=== PATIENT | male | born 1995 | race Caucasian/White ===

== ENCOUNTER 2018-04-16 13:35 | Outpatient (CLI) | payer MEDICAID ==
[~2018-04-16] VITALS: Ht 182.9 cm; Wt 61.4 kg
[2018-04-16 13:34] VITALS: BP 135/92
[~2018-04-16 13:35] MED LIST: HYDR-3965 PO
[2018-04-18] MEDS ORDERED: ALBU90AE PO (13:02)
== END 2018-04-16 14:38 | disposition home or self-care (01) ==
LOC: ORTHO 13:35
PROVIDERS: ATTEND Nurse Practitioner Family
DX: S52.614A Nondisplaced fracture of right ulna styloid process, initial encounter for closed fracture (principal); S52.501A Unspecified fracture of the lower end of right radius, initial encounter for closed fracture; F17.210 Nicotine dependence, cigarettes, uncomplicated; F12.90 Cannabis use, unspecified, uncomplicated; F31.9 Bipolar disorder, unspecified; F41.9 Anxiety disorder, unspecified; Z60.2 Problems related to living alone; X58.XXXA Exposure to other specified factors, initial encounter; Y93.89 Activity, other specified; Y92.89 Other specified places as the place of occurrence of the external cause; Y99.8 Other external cause status
CPT/HCPCS: 99215

== ENCOUNTER 2018-04-21 07:44 | Day surgery (SDC) | payer MEDICAID ==
[2018-04-21] VITALS (9 sets, daily range): BP systolic 108–144; BP diastolic 63–81
[~2018-04-21] VITALS: Ht 185.4 cm; Wt 61.7 kg
[~2018-04-21 07:44] MED LIST changes: +ALBU90AE PO; -HYDR-3965 PO; +VANCOMYCIN INJ 1000 MG in NORMAL SALINE 250ml IV.SOLN IV ONE; +albuterol 2.5 MG/3 ML nebule NEB ONE; +cefazolin/dext.iso 2gm/100 ML IV ONE; +famotidine 20mg tablet PO ONE; +ringers solution, lacted 1,000 ML IV SCH
[2018-04-21] MEDS ORDERED: ceFAZolin 1000mg inj ONE (08:15)
[2018-04-21] MEDS ORDERED: bacitracin 15gm ointment TP ONE (08:15)
[2018-04-21] MEDS ORDERED: BUPIVAcaine/PF 2.5mg/ml (0.25%) 10ml vial ONE (08:15)
[2018-04-21] MEDS ORDERED: LIDOcaine 1% (10mg/ml) 2ml vial ONE (08:22)
[2018-04-21] MEDS ORDERED: ringers solution, lacted 1,000 ML IV SCH (08:22)
[2018-04-21] MEDS ORDERED: meperidine/PF 25mg/ml syringe IV PRN ×3 (08:25)
[2018-04-21] MEDS ORDERED: proCHLORperazine 10 MG/2 ml inj IV PRN (08:25)
[2018-04-21] MEDS ORDERED: ondansetron/PF 4mg/2ml inj IV PRN (08:25)
[2018-04-21] MEDS ORDERED: morphine 4 MG/ML inj SYRINge IV PRN ×2 (08:25)
[2018-04-21 08:32] LABS: BASOPHILS % (AUTO) 0.5 % (0-1); EOSINOPHILS # (AUTO) 0.2 X10'3 (0-0.9); EOSINOPHILS % (AUTO) 2.4 % (0-6); LYMPHOCYTES # (AUTO) 2.3 X10'3 (1.1-4.8); LYMPHOCYTES % (AUTO) 28.8 % (21-51); MEAN CORPUSCULAR HEMOGLOBIN 30.4 PG (27.0-31.0); MEAN CORPUSCULAR HGB CONC 34.1 % (33.0-36.5); MEAN CORPUSCULAR VOLUME 89.1 FL (78-98); MEAN PLATELET VOLUME 9.2 FL (7.4-10.4); MONOCYTES # (AUTO) 0.4 X10'3 (0-0.9); MONOCYTES % (AUTO) 4.9 % (2-12); NEUTROPHILS % (AUTO) 63.4 % (42-75); PRE OP HEMATOCRIT 41.5 % (42.0-52.0); PRE OP HEMOGLOBIN 14.1 g/dL (14.0-17.9); PRE OP PLATELET COUNT 240 X10'3 (140-440); RED BLOOD COUNT 4.66 X10'6 (4.70-6.10); RED CELL DISTRIBUTION WIDTH 13.8 % (11.5-14.5)
[2018-04-21 08:44] LABS: ALBUMIN 4.2 G/DL (3.4-5.0); ALBUMIN/GLOBULIN RATIO 1.3 (1.1-1.5); ALKALINE PHOSPHATASE 79 IU/L (46-116); BLOOD UREA NITROGEN 12 MG/DL (7-18); BUN/CREATININE RATIO 15.6 (5.4-32.0); CHLORIDE 103 MMOL/L (99-107); CREATININE 0.77 MG/DL (0.60-1.10); PRE OP ALT 20 U/L (30-65); PRE OP ANION GAP 10 (8-16); PRE OP AST 14 U/L (10-37); PRE OP BILIRUB, TOTAL 0.5 MG/DL (0.0-1.0); PRE OP GLUCOSE 99 MG/DL (70-104); PRE OP POTASSIUM 3.8 MMOL/L (3.4-5.1); PRE OP SODIUM 140 MMOL/L (135-145); TOTAL CARBON DIOXIDE 27.1 MMOL/L (24-32); TOTAL PROTEIN 7.5 G/DL (6.4-8.2); eGFR > 90 ML/MIN
[2018-04-21] MEDS ORDERED: dexamethasone sod phosphate 10mg/ml inj ONE (10:05)
[2018-04-21] MEDS ORDERED: sevoflurane 250ml liquid IH ONE (10:05)
[2018-04-21] MEDS ORDERED: fentaNYL/PF 50MCG/1 ML 2ML syringe ONE (10:13)
[2018-04-21] MEDS ORDERED: MIDAZolam 5mg/5ml vial ONE (10:14)
[2018-04-21] MEDS ORDERED: propofol inj 20 ML IV ONE (10:27)
[2018-04-21] MEDS ORDERED: LIDOcaine 1%/PF 5ML 10 MG/ML VIAL ONE (10:27)
== END 2018-04-21 13:00 | disposition home or self-care (01) ==
LOC: PAS 07:44
PROVIDERS: ATTEND Orthopaedic Surgery
DX: S52.571A Other intraarticular fracture of lower end of right radius, initial encounter for closed fracture (principal); G89.18 Other acute postprocedural pain; F17.210 Nicotine dependence, cigarettes, uncomplicated; F12.90 Cannabis use, unspecified, uncomplicated; Z98.890 Other specified postprocedural states; Z79.899 Other long term (current) drug therapy; X58.XXXA Exposure to other specified factors, initial encounter; Y93.89 Activity, other specified; Y92.89 Other specified places as the place of occurrence of the external cause; Y99.8 Other external cause status
CPT/HCPCS: 25609; 36415; 64450; 80053; 85025; A6449; C1713; J0690; J1100; J2001; J2250; J2704; J3010; J3370; J3490; A7000; J7120

== ENCOUNTER 2018-04-29 13:37 | Outpatient (CLI) | payer MEDICAID ==
[~2018-04-29 13:37] MED LIST changes: -VANCOMYCIN INJ 1000 MG in NORMAL SALINE 250ml IV.SOLN IV ONE; -albuterol 2.5 MG/3 ML nebule NEB ONE; -cefazolin/dext.iso 2gm/100 ML IV ONE; -famotidine 20mg tablet PO ONE; -ringers solution, lacted 1,000 ML IV SCH
[2018-04-29 13:39] VITALS: BP 134/74
== END 2018-04-29 15:38 | disposition home or self-care (01) ==
LOC: ORTHO 13:37
PROVIDERS: ATTEND Nurse Practitioner Family
DX: S52.501D Unspecified fracture of the lower end of right radius, subsequent encounter for closed fracture with routine healing (principal); S52.614D Nondisplaced fracture of right ulna styloid process, subsequent encounter for closed fracture with routine healing; F12.90 Cannabis use, unspecified, uncomplicated; F17.210 Nicotine dependence, cigarettes, uncomplicated; F41.9 Anxiety disorder, unspecified; Z60.2 Problems related to living alone; W19.XXXD Unspecified fall, subsequent encounter
CPT/HCPCS: 73110; 99213; A4590

== ENCOUNTER 2018-05-15 10:36 | Outpatient (CLI) | payer MEDICAID ==
[2018-05-15 10:26] VITALS: BP 131/86
== END 2018-05-15 11:02 | disposition home or self-care (01) ==
LOC: ORTHO 10:36
PROVIDERS: ATTEND Nurse Practitioner Family
DX: S52.571D Other intraarticular fracture of lower end of right radius, subsequent encounter for closed fracture with routine healing (principal); S52.611G Displaced fracture of right ulna styloid process, subsequent encounter for closed fracture with delayed healing; F17.210 Nicotine dependence, cigarettes, uncomplicated; F12.90 Cannabis use, unspecified, uncomplicated; F41.9 Anxiety disorder, unspecified; F41.0 Panic disorder [episodic paroxysmal anxiety]; Z60.2 Problems related to living alone; V00.138D Other skateboard accident, subsequent encounter
CPT/HCPCS: 73110; 99213; A4590

== ENCOUNTER 2018-06-03 11:30 | Outpatient (CLI) | payer MEDICAID ==
[2018-06-03 11:23] VITALS: BP 133/81
== END 2018-06-03 12:03 | disposition home or self-care (01) ==
LOC: ORTHO 11:30
PROVIDERS: ATTEND Nurse Practitioner Family
DX: S52.571G Other intraarticular fracture of lower end of right radius, subsequent encounter for closed fracture with delayed healing (principal); S52.611G Displaced fracture of right ulna styloid process, subsequent encounter for closed fracture with delayed healing; F12.90 Cannabis use, unspecified, uncomplicated; F17.210 Nicotine dependence, cigarettes, uncomplicated; F41.0 Panic disorder [episodic paroxysmal anxiety]; Z60.2 Problems related to living alone; V00.138D Other skateboard accident, subsequent encounter
CPT/HCPCS: 73100; 99213; A4590

== ENCOUNTER 2018-06-25 11:51 | Outpatient (CLI) | payer MEDICAID | END 2018-06-25 12:13 | disposition home or self-care (01) | LOC: ORTHO 11:51 | PROVIDERS: ATTEND Nurse Practitioner Family | DX: S52.571D Other intraarticular fracture of lower end of right radius, subsequent encounter for closed fracture with routine healing (principal); S52.611G Displaced fracture of right ulna styloid process, subsequent encounter for closed fracture with delayed healing; F41.0 Panic disorder [episodic paroxysmal anxiety]; F17.210 Nicotine dependence, cigarettes, uncomplicated; F12.90 Cannabis use, unspecified, uncomplicated; Z60.2 Problems related to living alone; V00.131D Fall from skateboard, subsequent encounter | CPT/HCPCS: 73100; 99213 ==

== ENCOUNTER 2018-07-16 11:30 | Outpatient (CLI) | payer MEDICAID ==
[2018-07-16 11:29] VITALS: BP 142/73
== END 2018-07-16 12:15 | disposition home or self-care (01) ==
LOC: ORTHO 11:30
PROVIDERS: ATTEND Nurse Practitioner Family
DX: S52.591D Other fractures of lower end of right radius, subsequent encounter for closed fracture with routine healing (principal); S52.614G Nondisplaced fracture of right ulna styloid process, subsequent encounter for closed fracture with delayed healing; F17.210 Nicotine dependence, cigarettes, uncomplicated; F12.90 Cannabis use, unspecified, uncomplicated; Z60.2 Problems related to living alone; F41.9 Anxiety disorder, unspecified; V00.131D Fall from skateboard, subsequent encounter
CPT/HCPCS: 73100; 99213

== ENCOUNTER 2018-08-06 13:51 | Outpatient (CLI) | payer MEDICAID | END 2018-08-06 14:21 | disposition home or self-care (01) | LOC: ORTHO 13:51 | PROVIDERS: ATTEND Nurse Practitioner Family | DX: S52.571D Other intraarticular fracture of lower end of right radius, subsequent encounter for closed fracture with routine healing (principal); S52.611G Displaced fracture of right ulna styloid process, subsequent encounter for closed fracture with delayed healing; F41.9 Anxiety disorder, unspecified; F12.90 Cannabis use, unspecified, uncomplicated; F17.210 Nicotine dependence, cigarettes, uncomplicated; V00.131D Fall from skateboard, subsequent encounter | CPT/HCPCS: 73100; 99213 ==

== ENCOUNTER 2018-10-16 11:46 | Outpatient (CLI) | payer MEDICAID | END 2018-10-16 12:20 | disposition home or self-care (01) | LOC: ORTHO 11:46 | PROVIDERS: ATTEND Orthopaedic Surgery | DX: S52.591D Other fractures of lower end of right radius, subsequent encounter for closed fracture with routine healing (principal); X58.XXXD Exposure to other specified factors, subsequent encounter | CPT/HCPCS: 73100; 99213 ==

== ENCOUNTER 2025-06-30 12:38 | Outpatient (CLI) | payer MEDICAID ==
[2025-06-30 13:51] VITALS: PULSE 121; RESP 15; O2SAT 98
== END 2025-06-30 23:59 | disposition home or self-care (01) ==
LOC: RT 12:38
DX: R06.2 Wheezing (principal)
CPT/HCPCS: 94010; 94760